=== PATIENT | male | born 2000 | race Two or more races ===

== ENCOUNTER 2024-02-05 00:25 | Emergency (ER) | payer OTHER ==
[~2024-02-05] VITALS: Ht 177.8 cm; Wt 70.3 kg
[2024-02-05 00:28] VITALS: BP 120/75; TEMP 98.5
[2024-02-05] MEDS: KETOROLAC TROMETHAMINE INJ 60 MG/2 ML VIAL IM ONE (01:09)
[2024-02-05 03:16] VITALS: O2SAT 98
== END 2024-02-05 03:31 | disposition home or self-care (01) ==
LOC: ER 00:27
DX: S93.401A Sprain of unspecified ligament of right ankle, initial encounter (principal); X58.XXXA Exposure to other specified factors, initial encounter; Y93.89 Activity, other specified; Y92.89 Other specified places as the place of occurrence of the external cause; Y99.8 Other external cause status
CPT/HCPCS: 73610-TC; 73630-TC